=== PATIENT | female | born 1950 | race Caucasian/White ===

== ENCOUNTER 2019-12-10 11:38 | Outpatient (REF) | payer MEDICARE, SELFPAY | END 2019-12-10 11:39 | disposition home or self-care (01) | LOC: HO.BBR 11:38 | PROVIDERS: Visit Provider Internal Medicine | DX: Z13.89 Encounter for screening for other disorder (principal) ==

== ENCOUNTER 2019-12-15 12:42 | Outpatient (REF) | payer MEDICARE, SELFPAY | END 2019-12-15 12:43 | disposition home or self-care (01) | LOC: HO.BBR 12:42 | PROVIDERS: Visit Provider Internal Medicine | DX: E83.110 Hereditary hemochromatosis (principal) | CPT/HCPCS: 99195 ==

== ENCOUNTER 2020-06-14 12:59 | Outpatient (REF) | payer MEDICARE, SELFPAY | END 2020-06-14 13:00 | disposition home or self-care (01) | LOC: HO.BBR 12:59 | PROVIDERS: Visit Provider Internal Medicine | DX: Z13.89 Encounter for screening for other disorder (principal) ==

== ENCOUNTER 2021-01-05 14:56 | Outpatient (REF) | payer MEDICARE, SELFPAY | END 2021-01-05 14:57 | disposition home or self-care (01) | LOC: HO.BBR 14:56 | PROVIDERS: Visit Provider Internal Medicine | DX: Z13.89 Encounter for screening for other disorder (principal) ==

== ENCOUNTER 2021-02-01 14:13 | Outpatient (REF) | payer MEDICARE, SELFPAY | END 2021-02-01 14:14 | disposition home or self-care (01) | LOC: HO.BBR 14:13 | PROVIDERS: Visit Provider Internal Medicine | DX: Z13.89 Encounter for screening for other disorder (principal) ==

== ENCOUNTER 2021-02-14 15:01 | Outpatient (REF) | payer MEDICARE, SELFPAY | END 2021-02-14 15:02 | disposition home or self-care (01) | LOC: HO.BBR 15:01 | PROVIDERS: Visit Provider Internal Medicine | DX: Z13.89 Encounter for screening for other disorder (principal) ==

== ENCOUNTER 2021-03-01 12:09 | Outpatient (REF) | payer MEDICARE, SELFPAY | END 2021-03-01 12:10 | disposition home or self-care (01) | LOC: HO.BBR 12:09 | PROVIDERS: Visit Provider Internal Medicine | DX: Z13.89 Encounter for screening for other disorder (principal) ==

== ENCOUNTER 2021-03-18 14:22 | Outpatient (REF) | payer MEDICARE, SELFPAY ==
[2021-03-18 14:46] LABS: MANUAL DIFF FLAG NO
[2021-03-18 15:08] LABS: Basophils Percent Auto 0.5 % (0-2); Eosinophils Absolute Auto 0.1 X10*3/uL (0.0-0.4); Eosinophils Percent Auto 1.8 % (0-4); Hematocrit 41.1 % (37.0-47.0); Hemoglobin 13.6 g/dl (12.0-16.0); Imm Gran Abs Auto 0.01 X10*3/uL (0.00-0.03); Imm Gran Pct Auto 0.2 % (0.0-0.4); Lymphocytes Absolute Auto 2.3 X10*3/uL (1.2-4.9); Lymphocytes Percent Auto 38.7 % (20-40); Mean Corpuscular HGB Conc 33.1 g/dl (31.0-35.0); Mean Corpuscular Hemoglobin 32.3 pg (27.0-33.0); Mean Corpuscular Volume 97.6 fL (80.0-98.0); Monocytes Absolute Auto 0.5 X10*3/uL (0.1-1.2); Monocytes Percent Auto 7.6 % (2-11); Neutrophils Absolute Auto 3.1 x10*3/uL (2.0-8.3); Neutrophils Percent Auto 51.2 % (45-73); Platelet Count 144 X10*3/uL (160-400); Red Blood Count 4.21 X10*6/uL (4.20-5.50); Red Cell Distribution Width 12.1 % (11.0-16.0)
[2021-03-18 15:35] LABS: Alanine Aminotransferase 83 U/L (0-31); Albumin Level 3.9 g/dL (3.5-5.0); Alkaline Phosphatase 67 U/L (39-117); Anion Gap 11 (12-20); Aspartate Amino Transferase 63 U/L (5-31); Bilirubin Total 0.3 mg/dL (0.0-1.0); Blood Urea Nitrogen 15 mg/dL (9-16); Calcium 9.7 mg/dL (8.4-10.2); Carbon Dioxide 26 mmol/L (22-29); Chloride 108 mmol/L (96-108); Estimated Glomerular Filt Rate > 60; Glucose Random 110 mg/dL (60-115); Potassium 4.1 mmol/L (3.3-5.1); Sodium 141 mmol/L (135-145); Total Protein 6.6 g/dL (6.5-8.0)
[2021-03-18 15:59] LABS: Ferritin 158 ng/mL (10-250)
== END 2021-03-18 14:23 | disposition home or self-care (01) ==
LOC: HO.LAB 14:22
PROVIDERS: PCP Internal Medicine; Visit Provider Internal Medicine
DX: E83.110 Hereditary hemochromatosis (principal); R74.8 Abnormal levels of other serum enzymes
CPT/HCPCS: 36415; 80053; 82728; 85025; 99202

== ENCOUNTER 2021-04-08 14:01 | Outpatient (REF) | payer MEDICARE, SELFPAY ==
--- NOTE | 2021-04-08 15:26 | PFT_ITS ---
Forced vital capacity 82%. FEV1 79%. FEV1 over FVC ratio is 73. FEF 25-75 is 67% and MVV 59%. Postbronchodilator therapy, there is significant improvement in FVC, XIE10-59, and MVV. Total lung capacity 99%. Residual volume is 113%. Diffusion capacity is 56% and DL/VA is 66%. CONCLUSION: Mild obstructive airway disorder with good response to bronchodilator therapy. These findings are consistent with bronchial asthma. Clinical correlation is recommended. MD RICARDO Rice/CAMERON / [id number]
== END 2021-04-08 14:02 | disposition home or self-care (01) ==
LOC: HO.RESP 14:01
PROVIDERS: PCP Internal Medicine; Visit Provider Hospitalist
DX: J41.8 Mixed simple and mucopurulent chronic bronchitis (principal); R06.00 Dyspnea, unspecified
CPT/HCPCS: 94060; 94727; 94729

== ENCOUNTER 2021-05-02 14:36 | Outpatient (REF) | payer MEDICARE, SELFPAY ==
[2021-05-02 14:59] LABS: MANUAL DIFF FLAG NO
[2021-05-02 15:21] LABS: Basophils Percent Auto 0.6 % (0-2); Eosinophils Absolute Auto 0.1 X10*3/uL (0.0-0.4); Eosinophils Percent Auto 1.5 % (0-4); Hematocrit 43.4 % (37.0-47.0); Hemoglobin 14.6 g/dl (12.0-16.0); Imm Gran Abs Auto 0.01 X10*3/uL (0.00-0.03); Imm Gran Pct Auto 0.2 % (0.0-0.4); Lymphocytes Absolute Auto 1.7 X10*3/uL (1.2-4.9); Lymphocytes Percent Auto 31.9 % (20-40); Mean Corpuscular HGB Conc 33.6 g/dl (31.0-35.0); Mean Corpuscular Hemoglobin 32.8 pg (27.0-33.0); Mean Corpuscular Volume 97.5 fL (80.0-98.0); Mean Platelet Volume 12.2 fL (9.4-12.3); Monocytes Absolute Auto 0.3 X10*3/uL (0.1-1.2); Monocytes Percent Auto 5.2 % (2-11); Neutrophils Absolute Auto 3.3 x10*3/uL (2.0-8.3); Neutrophils Percent Auto 60.6 % (45-73); Platelet Count 142 X10*3/uL (160-400); Red Blood Count 4.45 X10*6/uL (4.20-5.50); Red Cell Distribution Width 11.9 % (11.0-16.0); White Blood Count 5.4 X10*3/uL (4.8-10.8)
[2021-05-02 17:06] LABS: Erythrocyte Sedimentation Rate 14 MM/HR (0-20)
[2021-05-03 11:31] LABS: IgA 122 mg/dL (70-320); IgG 808 mg/dL (600-1540); IgM 82 mg/dL (50-300)
[2021-05-03 13:30] LABS: Alpha 1 Anti-trypsin 130 mg/dL (83-199)
== END 2021-05-02 14:37 | disposition home or self-care (01) ==
LOC: HO.LAB 14:36
PROVIDERS: Visit Provider Hospitalist
DX: J30.9 Allergic rhinitis, unspecified (principal); J44.9 Chronic obstructive pulmonary disease, unspecified
CPT/HCPCS: 36415; 82103; 82784; 82785; 85025; 85652; 86003

== ENCOUNTER → 2021-05-09 13:06 | Outpatient (BNVA) | payer MEDICARE, SELFPAY | PROVIDERS: PCP Internal Medicine; Visit Provider Hospitalist | DX: J41.8 Mixed simple and mucopurulent chronic bronchitis (principal); J30.9 Allergic rhinitis, unspecified; J01.90 Acute sinusitis, unspecified; R91.8 Other nonspecific abnormal finding of lung field; G47.33 Obstructive sleep apnea (adult) (pediatric); F17.210 Nicotine dependence, cigarettes, uncomplicated; Z99.89 Dependence on other enabling machines and devices | CPT/HCPCS: 99212 ==

== ENCOUNTER 2021-09-16 14:09 | Outpatient (REF) | payer MEDICARE, SELFPAY | END 2021-09-16 14:10 | disposition home or self-care (01) | LOC: HO.BBR 14:09 | PROVIDERS: Visit Provider Internal Medicine | DX: Z13.89 Encounter for screening for other disorder (principal) ==

== ENCOUNTER 2022-06-07 14:08 | Outpatient (REF) | payer MEDICARE, SELFPAY | END 2022-06-07 14:09 | disposition home or self-care (01) | LOC: HO.BBR 14:08 | PROVIDERS: Visit Provider Internal Medicine | DX: Z13.89 Encounter for screening for other disorder (principal) ==

== ENCOUNTER 2022-06-28 13:56 | Outpatient (REF) | payer MEDICARE, SELFPAY | END 2022-06-28 13:57 | disposition home or self-care (01) | LOC: HO.BBR 13:56 | PROVIDERS: Visit Provider Internal Medicine | DX: E83.110 Hereditary hemochromatosis (principal) | CPT/HCPCS: 85014; 85018; 99195 ==

== ENCOUNTER 2023-08-29 10:47 | Outpatient (REF) | payer MEDICARE, SELFPAY | END 2023-08-29 10:48 | disposition home or self-care (01) | LOC: HO.BBR 10:47 | PROVIDERS: Visit Provider Internal Medicine | DX: Z13.89 Encounter for screening for other disorder (principal) ==

== ENCOUNTER 2023-12-31 10:46 | Outpatient (REF) | payer MEDICARE, SELFPAY | END 2023-12-31 10:47 | disposition home or self-care (01) | LOC: HO.BBR 10:46 | PROVIDERS: Visit Provider Internal Medicine | DX: Z13.89 Encounter for screening for other disorder (principal) ==